=== PATIENT | female | born 1945 | race Caucasian/White ===

== ENCOUNTER 2017-12-17 14:54 | Outpatient (CLI) | payer MEDICARE ==
--- NOTE | 2017-12-18 08:47 | MRI ---
MRI OF THE RIGHT KNEE WITHOUT CONTRAST: INDICATION: Right knee pain. COMPARISON: None. FINDINGS: There is a horizontally oriented flap tear involving the posterior horn and body of the medial menisc us with a displaced flap seen within the inferior aspect of the medial gutter on image 20 of series 9 measuring approximately 4.6 mm. There is a suspected small partial thickness radial tear involving the posterior junction of the lateral meniscus. There is some central free edge fraying of the later al meniscus. There is mild to moderate diffuse osteoarthrosis of the right knee predominantly affecting the medial femoral tibial joint compartment where there are multifocal areas of near full-thickness chondral th inning involving the medial femoral condyle and medial tibial plateau. There is subchondral edema in volving the anterior aspect of the tibial plateau which may be reactive in nature. The MCL, ACL, PCL, and LCLC are intact. The extensor mechanism is intact. There is a small semimemb ranous-gastrocnemius popliteal cyst. IMPRESSION: 1. Mild to moderate osteoarthrosis of the right knee. 2. Medial and lateral meniscal tears. 3. Subchondral edema involving the medial tibial plateau may be reactive from the patient's moderate to severe medial femoral tibial joint compartmental osteoarthrosis. POS: [facility]
== END 2017-12-17 14:55 | disposition home or self-care (01) ==
LOC: TBSIIMAG 14:54
PROVIDERS: ATTEND Orthopaedic Surgery
DX: S83.241A Other tear of medial meniscus, current injury, right knee, initial encounter (principal); M23.91 Unspecified internal derangement of right knee; M17.11 Unilateral primary osteoarthritis, right knee; R60.0 Localized edema

== ENCOUNTER 2018-04-09 11:34 | Outpatient (CLI) | payer OTHER | END 2018-04-09 11:35 | disposition home or self-care (01) | LOC: DTY/OP 11:34 | PROVIDERS: ATTEND Surgery | DX: E66.01 Morbid (severe) obesity due to excess calories (principal) | CPT/HCPCS: 97802 ==

== ENCOUNTER 2018-07-01 05:43 | Outpatient (CLI) | payer MEDICARE ==
[2018-07-01 12:06] LABS: #Basophils 0.1 thou/uL (0.0-0.2); #Eosinphils 0.1 thou/uL (0.0-0.7); #Lymphocytes 1.3 thou/uL (1.20-3.40); #Monocytes 0.5 thou/uL (0.11-0.59); #Neutrophils 3.8 thou/uL (1.40-6.50); %Basophils 1.1 % (0.0-1.0); %Eosinophils 1.6 % (0.0-10.0); %Lymphocytes 22.4 % (21.0-51.0); %Monocytes 9.2 % (0.0-10.0); %Neutrophils 65.7 % (42.0-75.0); Hemoglobin 12.2 g/dL (12.0-16.0); Mean Corpuscular Hemoglobin 32.1 pg (27.0-31.0); Mean Corpuscular Volume 91.5 fL (78.0-98.0); Mean Platelet Volume 8.7 fL (7.4-10.4); Platelet Count 217 thou/uL (130-400); RBC Distribution Width 11.5 % (11.5-14.5); White Blood Cell (WBC) Count 5.7 thou/uL (4.8-10.8)
[2018-07-01 12:24] LABS: Hemoglobin A1c 4.8 % (4.0-6.0)
[2018-07-01 12:25] LABS: ALT (SGPT) 22 U/L (8-55); AST (SGOT) 24 U/L (5-34); Albumin 4.2 g/dL (3.4-4.8); Alkaline Phosphatase 71 U/L (40-150); Anion Gap 11 mmol/L (10-20); BUN (Urea Nitrogen) 36 mg/dL (9.8-20.1); Bilirubin, Direct 0.2 mg/dL (0.1-0.3); Bilirubin, Total 0.5 mg/dL (0.2-1.2); Calc. Creatinine Clearance 0 mL/min (70-130); Calcium 9.4 mg/dL (7.8-10.44); Carbon Dioxide 21 mmol/L (23-31); Chloride 113 mmol/L (98-107); Estimated GFR-MDRD 71; Globulin 2.6 g/dL (2.4-3.5); Glucose 91 mg/dL (83-110); Potassium 4.2 mmol/L (3.5-5.1); Protein, Total 6.8 g/dL (6.0-8.3); Sodium 141 mmol/L (136-145)
== END 2018-07-01 05:44 | disposition home or self-care (01) ==
LOC: LABBT 05:43
PROVIDERS: ATTEND Surgery
DX: Z01.818 Encounter for other preprocedural examination (principal); M12.9 Arthropathy, unspecified; Z68.39 Body mass index [BMI] 39.0-39.9, adult
CPT/HCPCS: 80053; 80076; 83036; 85025; 93005; 93010

== ENCOUNTER 2018-07-01 11:30 | Inpatient (IN) | payer MEDICARE ==
[2018-07-06] MEDS ORDERED: Fentanyl 250 MCG/5 ML VIAL ONE (06:15)
[2018-07-06] MEDS ORDERED: Bupivacaine/Epinephrine 0.25% 30 ML VIAL ONE (06:39)
[2018-07-06] MEDS ORDERED: Heparin 5,000 UNITS/ML VIAL ONE (06:55)
[2018-07-06] MEDS ORDERED: CEFAZOLIN 2 GM/50 ML BAG ONE (06:55)
[2018-07-06] MEDS ORDERED: Scopolamine 1.5 mg/72 hour Patch ONE (06:55)
--- NOTE | 2018-07-06 08:03 | RAD ---
FRONTAL RADIOGRAPH CHEST PORTABLE UPRIGHT: DATE: 07/06/2018. COMPARISON: None. HISTORY: Preoperative patient. FINDINGS: There is elevation of the right hemidiaphragm. There is no pneumothorax, pleural fluid, focal consol idation, or alveolar edema. IMPRESSION: No acute findings. POS: [facility]
[2018-07-06] MEDS ORDERED: Ondansetron HCl/PF 4 MG/2 ML Vial IVP PRN (09:02)
[2018-07-06] MEDS ORDERED: Promethazine HCl 25 MG/ML VIAL IM PRN ×3 (09:02→09:53)
[2018-07-06] MEDS ORDERED: Promethazine HCl 25 MG/ML VIAL SLOW IVP PRN (09:02)
[2018-07-06] MEDS ORDERED: Promethazine HCl 25 MG/ML VIAL ONE (09:04)
[2018-07-06] MEDS ORDERED: Fentanyl 100 MCG/2 ML VIAL ONE (09:05)
[2018-07-06] MEDS ORDERED: fentaNYL Citrate/PF 2,000 MCG in Sodium Chloride 0.9% 60 ML IV PRN (09:36)
[2018-07-06] MEDS ORDERED: diphenhydrAMINE 50 MG/ML VIAL IVP PRN ×2 (09:36→09:53)
[2018-07-06] MEDS ORDERED: Ondansetron PF 4 MG/2 ML Vial IVP PRN ×2 (09:36→09:53)
[2018-07-06] MEDS ORDERED: diphenhydrAMINE 25 MG CAP PO PRN (09:36)
[2018-07-06] MEDS ORDERED: diphenhydrAMINE 50 MG/ML VIAL IM PRN (09:36)
[2018-07-06] MEDS ORDERED: Naloxone HCl 0.4 mg/ml Vial IV PRN (09:36)
[2018-07-06] MEDS ORDERED: Zolpidem Tartrate 5 MG TAB PO PRN (09:36)
[2018-07-06] MEDS ORDERED: Communication Order-Pharmacy FS SCH (09:45)
[2018-07-06] MEDS ORDERED: Dextrose 50% Abboject 50 ML SYRINGE SLOW IVP PRN (09:53)
[2018-07-06] MEDS ORDERED: hydrALAZINE 20 MG/ML VIAL SLOW IVP PRN (09:53)
[2018-07-06] MEDS ORDERED: Hydrocodone-Acetamin 15 ML UDCUP PO PRN (09:53)
[2018-07-06] MEDS ORDERED: Dextrose 5% in Water 1,000 ML IV PRN (09:53)
[2018-07-06 11:32] VITALS: BMI 37.1
[2018-07-06] MEDS: D5 1/2 NS w/20 mEq KCL 1,000 ML IV SCH ×3 (11:34→20:04)
[2018-07-06] MEDS: Acetaminophen 1,000 MG in Premix Bag 1 BAG IVPB SCH ×3 (11:35→23:06)
--- NOTE | 2018-07-06 14:31 | OP ---
DATE OF PROCEDURE: 07/06/2018 PREOPERATIVE DIAGNOSES: 1. Morbid obesity with a body mass index of 40. 2. Chronic joint pain and arthritis. 3. Paraesophageal hiatal hernia. POSTOPERATIVE DIAGNOSES: 1. Morbid obesity with a body mass index of 40. 2. Chronic joint pain and arthritis. 3. Paraesophageal hiatal hernia. PROCEDURES PERFORMED: 1. Laparoscopic sleeve gastrectomy with Verbena staple line reinforcements and 38-[place] bougie. 2. Paraesophageal laparoscopic hiatal hernia repair without fundoplication or mesh. 3. Esophagogastroduodenoscopy. ANESTHESIA: General. ESTIMATED BLOOD LOSS: 50 mL. COMPLICATIONS: None. FINDINGS: Normal postoperative EGD. DESCRIPTION OF PROCEDURE: The patient was taken to the operating room and laid supine in the operating room table. After general anesthetic was obtained, the arms and legs were double strapped to bariatric table. The abdomen was prepped and draped in a sterile fashion. Left subcostal 5-mm Optiview trocar placed in usual fashion and high-flow pneumoperitoneum was obtained. Right subcostal 5 mm port and two abdominal 12 mm ports were placed under direct visualization. A 5 mm incision was made at the xiphoid and the Kiara was used to raise the liver off the GE junction. Short gastrics were taken down from mid body of stomach to left olivia of diaphragm. Left olivia of the diaphragm, posterior fundus, and angle of His were completely dissected. This reveals a paraesophageal hiatal hernia. The fundus was removed from the chest. A circumferential dissection of the esophagus was performed. Gastrohepatic ligament was opened medially and the right olivia was dissected. 38 bougie was brought in tip left in the antrum of the stomach. Multiple loads of the [place] stapling device used to perform the sleeve. The short gastrics had been taken down to a distance of 6 cm proximal to the pylorus. The first stapler was fired up at a distance of 6 cm proximal to the pylorus angled up towards the incisura. Multiple loads were then fired up in the stomach along the bougie. Stomach was completely transected at the angle of His. The stomach was removed from the left abdominal incision. The fascial defect was to closed using GraNee needle 0 Vicryl tie. The posterior crura were closed using two interrupted Ethibond sutures in a Ti-knot system. This was performed with the bougie in place. A few bleeders on the staple line were clipped using laparoscopic clip. Bougie was removed and an EGD scope was passed through esophagus, stomach to the level of the duodenum without obstruction. There was no stricture at the incisura. There was no evidence of stenosis at the GE junction or at the diaphragmatic hiatus. EGD scope was used to decompress the stomach it was pulled and removed. Kiara retractor was removed the under direct visualization without bleeding. All ports were removed under direct visualization without bleeding. Pneumoperitoneum was let down. Vicryl was used to close the fascial defect from the left abdominal incision. All incisions were irrigated and closed using 4-0 Monocryl and Dermabond. The patient was sent to Recovery in stable condition. All instrument counts, needle counts, and lap counts were correct. Job ID: [id number]
[2018-07-06] MEDS ORDERED: Ondansetron PF 4 MG/2 ML Vial ONE (14:34)
[2018-07-06] MEDS ORDERED: Glycopyrrolate 0.2 MG/ML 5 ML SYRINGE ONE (14:34)
[2018-07-06] MEDS ORDERED: PROPOFOL 200 MG/20 ML VIAL ONE (14:34)
[2018-07-06] MEDS ORDERED: Ketorolac Tromethamine 30 MG/ML VIAL ONE (14:34)
[2018-07-06] MEDS ORDERED: Metoclopramide HCl 10 MG/2 ML VIAL ONE (14:34)
[2018-07-06] MEDS ORDERED: Dexamethasone 20 MG/5 ML VIAL ONE (14:34)
[2018-07-06] MEDS ORDERED: Lidocaine 1% PF 5 ML VIAL ONE (14:34)
[2018-07-06] MEDS ORDERED: Enoxaparin Sodium 40 MG/0.4 ML SYRINGE SC SCH (21:00)
[2018-07-07] MEDS: D5 1/2 NS w/20 mEq KCL 1,000 ML IV SCH (02:18)
[2018-07-07] MEDS: Acetaminophen 1,000 MG in Premix Bag 1 BAG IVPB SCH (05:28)
[2018-07-07 08:08] LABS: #Lymphocytes 1.9 thou/uL (1.20-3.40); #Monocytes 0.8 thou/uL (0.11-0.59); #Neutrophils 7.1 thou/uL (1.40-6.50); %Basophils 0.2 % (0.0-1.0); %Eosinophils 0.2 % (0.0-10.0); %Monocytes 8.5 % (0.0-10.0); %Neutrophils 72.1 % (42.0-75.0); Hemoglobin 12.2 g/dL (12.0-16.0); Mean Corpuscular HGB CONC 34.4 g/dL (32.0-36.0); Mean Corpuscular Hemoglobin 31.9 pg (27.0-31.0); Mean Corpuscular Volume 92.8 fL (78.0-98.0); Mean Platelet Volume 8.7 fL (7.4-10.4); Platelet Count 233 thou/uL (130-400); RBC Distribution Width 11.5 % (11.5-14.5); Red Blood Cell (RBC) Count 3.81 mill/uL (4.20-5.40); White Blood Cell (WBC) Count 9.8 thou/uL (4.8-10.8)
[2018-07-07 08:25] LABS: Anion Gap 13 mmol/L (10-20); BUN (Urea Nitrogen) 18 mg/dL (9.8-20.1); Calc. Creatinine Clearance 107 mL/min (70-130); Calcium 8.9 mg/dL (7.8-10.44); Carbon Dioxide 17 mmol/L (23-31); Chloride 110 mmol/L (98-107); Estimated GFR-MDRD 73; Glucose 106 mg/dL (83-110); Potassium 4.2 mmol/L (3.5-5.1); Sodium 136 mmol/L (136-145)
[2018-07-07] MEDS ORDERED: Pantoprazole 40 MG VIAL IVP SCH (09:00)
[2018-07-07] MEDS ORDERED: Hydrocodone-Acetamin 15 ML UDCUP PO PRN (10:57)
[2018-07-07 12:33] VITALS: BP 164/78; TEMP 97.8
== END 2018-07-07 16:35 | disposition home or self-care (01) | DRG 621 ==
LOC: SURG A 07-06 06:03 → SURG B 07-06 11:15
PROVIDERS: ADMIT Surgery; ATTEND Surgery
PROC: 0DB64Z3 Excision of Stomach, Percutaneous Endoscopic Approach, Vertical (ICD-10-PCS; principal; 2018-07-06)
PROC: 0BQT4ZZ Repair Diaphragm, Percutaneous Endoscopic Approach (ICD-10-PCS; 2018-07-06)
PROC: 0DJ08ZZ Inspection of Upper Intestinal Tract, Via Natural or Artificial Opening Endoscopic (ICD-10-PCS; 2018-07-06)
DX: E66.01 Morbid (severe) obesity due to excess calories (principal); Z68.41 Body mass index [BMI] 40.0-44.9, adult; K44.9 Diaphragmatic hernia without obstruction or gangrene; G89.29 Other chronic pain; M19.90 Unspecified osteoarthritis, unspecified site
CPT/HCPCS: 36415; 71045; 80048; 85025; 88307; 88312; C9113; J0131; J1644; J1650; J2405; J2550; J3010; J7050